=== PATIENT | female | born 1970 | race Caucasian/White ===

== ENCOUNTER → 2016-07-25 | Outpatient (CLI) | payer BC ==
[2016-07-25 09:45] LABS: ALBUMIN 3.7 GM/DL (3.2-5.2); ALBUMIN/GLOBULIN RATIO 1.16 (1.00-1.93); ALKALINE PHOSPHATASE 49 U/L (45-117); ALT/SGPT 23 U/L (12-78); ANION GAP 10 MEQ/L (8-16); AST/SGOT 10 U/L (15-37); BILIRUBIN,TOTAL 0.5 MG/DL (0.2-1.0); BLOOD UREA NITROGEN 20 MG/DL (7-18); CARBON DIOXIDE LEVEL 25 MEQ/L (21-32); CHLORIDE LEVEL 104 MEQ/L (98-107); CHOLESTEROL LEVEL 168 MG/DL (<200); CREATININE FOR GFR 0.58 MG/DL (0.55-1.02); FERRITIN 6 NG/ML (8-252); GLOMERULAR FILTRATION RATE > 60.0 (>58); GLUCOSE, FASTING 210 MG/DL (70-105); PERCENT SATURATION 15.5 % (13.2-37.4); POTASSIUM SERUM 4.3 MEQ/L (3.5-5.1); SODIUM LEVEL 139 MEQ/L (136-145); TOTAL IRON BINDING CAPACITY 343 UG/DL (250-450); TOTAL PROTEIN 6.9 GM/DL (6.4-8.2); TRIGLYCERIDES LEVEL 193 MG/DL (<150)
[2016-07-25 09:51] LABS: BASO % 0.6 % (0.0-1.0); EOS # 0.1 K/mm3 (0.0-0.50); LARGE UNSTAINED CELL # 0.1 K/mm3 (0.0-0.4); LARGE UNSTAINED CELL % 1.8 % (0.0-4.0); LYMPH # 1.3 K/mm3 (1.5-4.5); LYMPH % 23.5 % (24.0-44.0); MEAN CORPUSCULAR HEMOGLOBIN 26.6 pg (27.0-33.0); MEAN CORPUSCULAR HGB CONC 32.5 g/dl (32.0-36.5); MEAN CORPUSCULAR VOLUME 81.9 fl (80.0-96.0); MONO # 0.3 K/mm3 (0.0-0.8); MONO % 4.6 % (0.0-5.0); NEUTROPHILS # 3.8 K/mm3 (1.8-7.7); NEUTROPHILS % 67.5 % (36.0-66.0); PLATELET COUNT, AUTOMATED 186 k/mm3 (150-450); RED CELL DISTRIBUTION WIDTH 16.2 % (11.5-14.5); WHITE BLOOD COUNT 5.6 K/mm3 (4.0-10.0)
== END ==
LOC: M LAB 08:42
PROVIDERS: ATTEND Family Medicine
DX: E11.65 Type 2 diabetes mellitus with hyperglycemia (principal)

== ENCOUNTER → 2016-10-22 | Outpatient (CLI) | payer BC ==
[2016-10-22 10:21] LABS: ALBUMIN 3.7 GM/DL (3.2-5.2); ALBUMIN/GLOBULIN RATIO 1.16 (1.00-1.93); ALKALINE PHOSPHATASE 41 U/L (45-117); ALT/SGPT 18 U/L (12-78); ANION GAP 9 MEQ/L (8-16); AST/SGOT 6 U/L (15-37); BILIRUBIN,TOTAL 0.7 MG/DL (0.2-1.0); BLOOD UREA NITROGEN 19 MG/DL (7-18); CALCIUM LEVEL 8.3 MG/DL (8.5-10.1); CARBON DIOXIDE LEVEL 24 MEQ/L (21-32); CHLORIDE LEVEL 106 MEQ/L (98-107); CHOLESTEROL LEVEL 136 MG/DL (<200); CREATININE FOR GFR 0.61 MG/DL (0.55-1.02); FERRITIN 8 NG/ML (8-252); GLOMERULAR FILTRATION RATE > 60.0 (>58); GLUCOSE, FASTING 145 MG/DL (70-105); POTASSIUM SERUM 4.1 MEQ/L (3.5-5.1); SODIUM LEVEL 139 MEQ/L (136-145); TOTAL PROTEIN 6.9 GM/DL (6.4-8.2); TRIGLYCERIDES LEVEL 117 MG/DL (<150)
== END ==
LOC: M LAB 09:02
PROVIDERS: ATTEND Family Medicine
DX: E11.65 Type 2 diabetes mellitus with hyperglycemia (principal); D50.9 Iron deficiency anemia, unspecified

== ENCOUNTER → 2017-01-23 | Outpatient (CLI) | payer BC ==
[2017-01-23 10:52] LABS: BASO % 0.7 % (0.0-1.0); EOS # 0.2 K/mm3 (0.0-0.50); EOS % 2.7 % (0.0-3.0); LARGE UNSTAINED CELL # 0.1 K/mm3 (0.0-0.4); LARGE UNSTAINED CELL % 1.9 % (0.0-4.0); LYMPH # 1.9 K/mm3 (1.5-4.5); LYMPH % 23.8 % (24.0-44.0); MEAN CORPUSCULAR HEMOGLOBIN 30.7 pg (27.0-33.0); MEAN CORPUSCULAR HGB CONC 34.4 g/dl (32.0-36.5); MONO # 0.3 K/mm3 (0.0-0.8); MONO % 4.4 % (0.0-5.0); NEUTROPHILS # 4.8 K/mm3 (1.8-7.7); NEUTROPHILS % 66.5 % (36.0-66.0); PLATELET COUNT, AUTOMATED 214 k/mm3 (150-450); RED CELL DISTRIBUTION WIDTH 12.9 % (11.5-14.5); WHITE BLOOD COUNT 7.3 K/mm3 (4.0-10.0)
[2017-01-23 11:23] LABS: ANION GAP 7 MEQ/L (8-16); BLOOD UREA NITROGEN 17 MG/DL (7-18); CALCIUM LEVEL 9.1 MG/DL (8.5-10.1); CARBON DIOXIDE LEVEL 26 MEQ/L (21-32); CHLORIDE LEVEL 105 MEQ/L (98-107); CREATININE FOR GFR 0.65 MG/DL (0.55-1.02); FREE T4 1.01 NG/DL (0.76-1.46); GLOMERULAR FILTRATION RATE > 60.0 (>58); GLUCOSE, FASTING 148 MG/DL (70-105); POTASSIUM SERUM 4.3 MEQ/L (3.5-5.1); SODIUM LEVEL 138 MEQ/L (136-145)
== END ==
LOC: M LAB 09:42
PROVIDERS: ATTEND Physician Assistant
DX: E11.65 Type 2 diabetes mellitus with hyperglycemia (principal)

== ENCOUNTER → 2017-04-30 | Outpatient (CLI) | payer BC ==
[2017-04-30 11:01] LABS: BASO # 0.1 10^3/uL (0.0-0.2); BASO % 0.6 % (0.0-1.0); EOS # 0.1 10^3/uL (0.0-0.50); EOS % 1.3 % (0.0-3.0); IMMATURE GRANULOCYTE % 0.3 % (0-0); LYMPH # 1.5 10^3/uL (1.5-4.5); LYMPH % 18.8 % (24.0-44.0); MEAN CORPUSCULAR HEMOGLOBIN 30.6 pg (27.0-33.0); MEAN CORPUSCULAR HGB CONC 34.2 g/dl (32.0-36.5); MEAN CORPUSCULAR VOLUME 89.6 fl (80.0-96.0); MONO # 0.4 10^3/uL (0.0-0.8); MONO % 4.9 % (0.0-5.0); NEUTROPHILS # 5.9 10^3/uL (1.8-7.7); NEUTROPHILS % 74.1 % (36.0-66.0); PLATELET COUNT, AUTOMATED 214 10^3/uL (150-450); RED CELL DISTRIBUTION WIDTH 12.7 % (11.5-14.5)
[2017-04-30 11:16] LABS: ALBUMIN 3.7 GM/DL (3.2-5.2); ALBUMIN/GLOBULIN RATIO 1.12 (1.00-1.93); ALKALINE PHOSPHATASE 44 U/L (45-117); ALT/SGPT 19 U/L (12-78); ANION GAP 9 MEQ/L (8-16); AST/SGOT 7 U/L (7-37); BILIRUBIN,TOTAL 1.1 MG/DL (0.2-1.0); BLOOD UREA NITROGEN 19 MG/DL (7-18); CALCIUM LEVEL 8.6 MG/DL (8.5-10.1); CARBON DIOXIDE LEVEL 25 MEQ/L (21-32); CHLORIDE LEVEL 103 MEQ/L (98-107); CHOLESTEROL LEVEL 161 MG/DL (<200); CREATININE FOR GFR 0.47 MG/DL (0.55-1.02); GLOMERULAR FILTRATION RATE > 60.0 (>58); GLUCOSE, FASTING 101 MG/DL (70-105); POTASSIUM SERUM 3.9 MEQ/L (3.5-5.1); SODIUM LEVEL 137 MEQ/L (136-145); TRIGLYCERIDES LEVEL 104 MG/DL (<150)
== END ==
LOC: M LAB 10:18
PROVIDERS: ATTEND Family Medicine
DX: E11.9 Type 2 diabetes mellitus without complications (principal); D50.9 Iron deficiency anemia, unspecified

== ENCOUNTER → 2017-07-30 | Outpatient (CLI) | payer BC ==
[2017-07-30 10:19] LABS: ANION GAP 8 MEQ/L (8-16); BLOOD UREA NITROGEN 22 MG/DL (7-18); CALCIUM LEVEL 8.7 MG/DL (8.5-10.1); CARBON DIOXIDE LEVEL 25 MEQ/L (21-32); CHLORIDE LEVEL 106 MEQ/L (98-107); CREATININE FOR GFR 0.62 MG/DL (0.55-1.30); GLOMERULAR FILTRATION RATE > 60.0 (>58); GLUCOSE, FASTING 123 MG/DL (70-100); POTASSIUM SERUM 4.1 MEQ/L (3.5-5.1); SODIUM LEVEL 139 MEQ/L (136-145)
[2017-07-30 10:28] LABS: ESTIMATED AVERAGE GLUCOSE 143 MG/DL (60-110); HEMOGLOBIN A1c 6.6 %
== END ==
LOC: M LAB 09:27
DX: Z00.00 Encounter for general adult medical examination without abnormal findings (principal); E11.9 Type 2 diabetes mellitus without complications
CPT/HCPCS: 83036

== ENCOUNTER → 2017-10-28 | Outpatient (CLI) | payer BC ==
[2017-10-28 10:34] LABS: BASO # 0.1 10^3/uL (0.0-0.2); BASO % 0.7 % (0.0-1.0); EOS # 0.1 10^3/uL (0.0-0.50); EOS % 1.6 % (0.0-3.0); HEMATOCRIT 43.4 % (36.0-47.0); HEMOGLOBIN 14.8 g/dl (12.0-15.5); IMMATURE GRANULOCYTE % 0.1 % (0-3.0); LYMPH # 1.6 10^3/uL (1.5-4.5); LYMPH % 23.3 % (24.0-44.0); MEAN CORPUSCULAR HEMOGLOBIN 31.1 pg (27.0-33.0); MEAN CORPUSCULAR HGB CONC 34.1 g/dl (32.0-36.5); MEAN CORPUSCULAR VOLUME 91.2 fl (80.0-96.0); MONO # 0.4 10^3/uL (0.0-0.8); MONO % 5.6 % (0.0-5.0); NEUTROPHILS # 4.8 10^3/uL (1.8-7.7); NEUTROPHILS % 68.7 % (36.0-66.0); PLATELET COUNT, AUTOMATED 215 10^3/uL (150-450); RED BLOOD COUNT 4.76 10^6/uL (4.00-5.40); RED CELL DISTRIBUTION WIDTH 12.5 % (11.5-14.5)
[2017-10-28 10:53] LABS: ESTIMATED AVERAGE GLUCOSE 140 MG/DL (60-110); HEMOGLOBIN A1c 6.5 %
[2017-10-28 11:07] LABS: ALBUMIN/GLOBULIN RATIO 1.18 (1.00-1.93); ALKALINE PHOSPHATASE 41 U/L (45-117); ALT/SGPT 20 U/L (12-78); ANION GAP 7 MEQ/L (8-16); AST/SGOT 10 U/L (7-37); BILIRUBIN,TOTAL 0.8 MG/DL (0.2-1.0); BLOOD UREA NITROGEN 23 MG/DL (7-18); CARBON DIOXIDE LEVEL 24 MEQ/L (21-32); CHLORIDE LEVEL 107 MEQ/L (98-107); CREATININE FOR GFR 0.57 MG/DL (0.55-1.30); GLOMERULAR FILTRATION RATE > 60.0 (>58); GLUCOSE, FASTING 130 MG/DL (70-100); POTASSIUM SERUM 4.3 MEQ/L (3.5-5.1); SODIUM LEVEL 138 MEQ/L (136-145); TOTAL PROTEIN 7.4 GM/DL (6.4-8.2)
[2017-10-28 11:16] LABS: MALB URINE SIEMENS 17.4 MG/L; MAU/CREAT RATIO 16.1 MCG/MG (0.0-30.0)
== END ==
LOC: M LAB 09:40
DX: E11.9 Type 2 diabetes mellitus without complications (principal)
CPT/HCPCS: 80053

== ENCOUNTER → 2018-05-05 | Outpatient (CLI) | payer BC | LOC: M RAD 08:06 | DX: Z12.31 Encounter for screening mammogram for malignant neoplasm of breast (principal) ==

== ENCOUNTER → 2018-05-05 | Outpatient (CLI) | payer BC ==
[2018-05-05 09:51] LABS: ALBUMIN/GLOBULIN RATIO 1.33 (1.00-1.93); ALKALINE PHOSPHATASE 49 U/L (45-117); ALT/SGPT 22 U/L (12-78); ANION GAP 8 MEQ/L (8-16); AST/SGOT 9 U/L (7-37); BILIRUBIN,TOTAL 1.1 MG/DL (0.2-1.0); BLOOD UREA NITROGEN 20 MG/DL (7-18); CARBON DIOXIDE LEVEL 24 MEQ/L (21-32); CHLORIDE LEVEL 105 MEQ/L (98-107); CHOLESTEROL LEVEL 172 MG/DL (<200); CHOLESTEROL RISK RATIO 4.095 (<5); CREATININE FOR GFR 0.63 MG/DL (0.55-1.30); GLOMERULAR FILTRATION RATE > 60.0 (>58); GLUCOSE, FASTING 172 MG/DL (70-100); HDL CHOLESTEROL 42 MG/DL (>40); LDL CHOLESTEROL 102 MG/DL (<100); NON-HDL-C 130 MG/DL; POTASSIUM SERUM 4.2 MEQ/L (3.5-5.1); SODIUM LEVEL 137 MEQ/L (136-145); TRIGLYCERIDES LEVEL 138 MG/DL (<150)
[2018-05-05 10:17] LABS: CREATININE, URINE 70.4 MG/DL; MALB URINE SIEMENS 11.9 MG/L; MAU/CREAT RATIO 16.9 MCG/MG (0.0-30.0)
[2018-05-05 10:56] LABS: ESTIMATED AVERAGE GLUCOSE 171 MG/DL (60-110); HEMOGLOBIN A1c 7.6 %
== END ==
LOC: M LAB 08:08
DX: E11.9 Type 2 diabetes mellitus without complications (principal); Z68.36 Body mass index [BMI] 36.0-36.9, adult
CPT/HCPCS: 80053

== ENCOUNTER → 2018-06-15 | Outpatient (REF) | payer BC ==
[2018-06-18 14:55] LABS: HPV HYBRID CAPTURE II Positive (Negative)
== END ==
LOC: M LAB REF 19:14
PROVIDERS: ATTEND Family Medicine
DX: Z12.4 Encounter for screening for malignant neoplasm of cervix (principal)
CPT/HCPCS: 87624; G0123

== ENCOUNTER → 2018-08-10 | Outpatient (CLI) | payer BC ==
[2018-08-10 11:17] LABS: BLOOD UREA NITROGEN 19 MG/DL (7-18); CALCIUM LEVEL 8.1 MG/DL (8.5-10.1); CARBON DIOXIDE LEVEL 24 MEQ/L (21-32); CHLORIDE LEVEL 107 MEQ/L (98-107); CREATININE FOR GFR 0.66 MG/DL (0.55-1.30); GLOMERULAR FILTRATION RATE > 60.0 (>58); GLUCOSE, FASTING 192 MG/DL (70-100); POTASSIUM SERUM 4.4 MEQ/L (3.5-5.1); SODIUM LEVEL 139 MEQ/L (136-145)
[2018-08-10 12:15] LABS: HEMOGLOBIN A1c 7.3 %
== END ==
LOC: M LAB 09:42
PROVIDERS: ATTEND Physician Assistant
DX: Z00.00 Encounter for general adult medical examination without abnormal findings (principal)

== ENCOUNTER → 2018-09-23 | Outpatient (CLI) | payer BC ==
[2018-09-23 13:48] LABS: HEMATOCRIT 46.2 % (36.0-47.0); HEMOGLOBIN 15.1 g/dl (12.0-15.5); MEAN CORPUSCULAR HEMOGLOBIN 30.2 pg (27.0-33.0); MEAN CORPUSCULAR HGB CONC 32.7 g/dl (32.0-36.5); MEAN CORPUSCULAR VOLUME 92.4 fl (80.0-96.0); PLATELET COUNT, AUTOMATED 243 10^3/uL (150-450); WHITE BLOOD COUNT 8.2 10^3/uL (4.0-10.0)
[2018-09-23 15:02] LABS: FREE T4 0.96 NG/DL (0.76-1.46); LUTEINIZING HORMONE 12.5 mIU/mL; THYROID STIMULATING HORMONE 2.26 uIU/ML (0.358-3.740)
== END ==
LOC: M SMT 11:19
PROVIDERS: ATTEND Advanced Practice Midwife
DX: N92.0 Excessive and frequent menstruation with regular cycle (principal)

== ENCOUNTER → 2018-09-25 | Outpatient (CLI) | payer BC ==
--- NOTE | 2018-09-25 18:52 | REP ---
PELVIC ULTRASOUND: Real-time sonographic evaluation of the pelvis was performed utilizing transabdominal and endovaginal technique. The bladder measures 6.7 x 5.8 x 9.2 cm. The uterus measures 7.7 x 4.0 x 4.9 cm. Endometrial thickness is normal at 4 mm. There is no endometrial fluid collection. Cystic structure in the anterior uterus in the superficial myometrium measures approximately 5 mm. There is also a tiny calcification anteriorly adjacent to the endometrial echo complex. Junctional zone is ill-defined which could indicate adenomyosis. Ovaries are normal in size and echotexture, right ovary measuring 1.7 x 0.8 x 2.1 cm and left ovary 2.1 x 1.3 x 2.3 cm. There is no adnexal mass or free fluid. There is no evidence of torsion. IMPRESSION: Normal endometrial thickness 4 mm. A 5 mm cystic structure anterior myometrium. Tiny calcification adjacent to anterior endometrium. Junctional zone is ill-defined which could indicate adenomyosis. Electronically Signed by Trent Wyman MD 09/28/2018 01:47 P
== END ==
LOC: M RAD 14:38
PROVIDERS: ATTEND Advanced Practice Midwife
DX: N85.8 Other specified noninflammatory disorders of uterus (principal)

== ENCOUNTER → 2018-10-09 | Outpatient (REF) | payer BC | LOC: M LAB REF 17:59 | PROVIDERS: ATTEND Advanced Practice Midwife | DX: N92.0 Excessive and frequent menstruation with regular cycle (principal) ==

== ENCOUNTER → 2018-12-10 | Outpatient (CLI) | payer BC ==
[2018-12-10 10:26] LABS: ALBUMIN 3.9 GM/DL (3.2-5.2); ALT/SGPT 28 U/L (12-78); BILIRUBIN,TOTAL 0.9 MG/DL (0.2-1.0); BLOOD UREA NITROGEN 26 MG/DL (7-18); CALCIUM LEVEL 9.1 MG/DL (8.5-10.1); CARBON DIOXIDE LEVEL 25 MEQ/L (21-32); CHLORIDE LEVEL 108 MEQ/L (98-107); CREATININE FOR GFR 0.82 MG/DL (0.55-1.30); GLOMERULAR FILTRATION RATE > 60.0 (>58); GLUCOSE, FASTING 169 MG/DL (70-100); POTASSIUM SERUM 4.2 MEQ/L (3.5-5.1); SODIUM LEVEL 139 MEQ/L (136-145); TOTAL PROTEIN 7.4 GM/DL (6.4-8.2)
[2018-12-10 10:51] LABS: HEMOGLOBIN A1c 7.7 %
[2018-12-10 11:09] LABS: MALB URINE SIEMENS 11.7 MG/L
== END ==
LOC: M SMT 08:18
PROVIDERS: ATTEND Family Medicine
DX: E11.65 Type 2 diabetes mellitus with hyperglycemia (principal)

== ENCOUNTER → 2019-05-28 | Outpatient (CLI) | payer BC ==
[2019-05-28 14:15] LABS: BASO # 0.1 10^3/uL (0.0-0.2); BASO % 0.8 % (0.0-1.0); EOS # 0.1 10^3/uL (0.0-0.5); EOS % 2.2 % (0.0-3.0); HEMATOCRIT 44.5 % (36.0-47.0); HEMOGLOBIN 14.7 g/dl (12.0-15.5); LYMPH # 1.6 10^3/uL (1.5-5.0); LYMPH % 25.9 % (24.0-44.0); MEAN CORPUSCULAR HEMOGLOBIN 30.8 pg (27.0-33.0); MEAN CORPUSCULAR VOLUME 93.1 fl (80.0-96.0); MONO # 0.4 10^3/uL (0.0-0.8); MONO % 6.2 % (0.0-5.0); NEUTROPHILS # 4.1 10^3/uL (1.5-8.5); NEUTROPHILS % 64.7 % (36.0-66.0); PLATELET COUNT, AUTOMATED 203 10^3/uL (150-450); RED BLOOD COUNT 4.78 10^6/uL (4.00-5.40); WHITE BLOOD COUNT 6.3 10^3/uL (4.0-10.0)
[2019-05-28 14:28] LABS: ALBUMIN 3.8 GM/DL (3.2-5.2); ALT/SGPT 23 U/L (12-78); BILIRUBIN,TOTAL 1.1 MG/DL (0.2-1.0); BLOOD UREA NITROGEN 21 MG/DL (7-18); CALCIUM LEVEL 8.9 MG/DL (8.5-10.1); CARBON DIOXIDE LEVEL 28 MEQ/L (21-32); CHLORIDE LEVEL 105 MEQ/L (98-107); CHOLESTEROL LEVEL 190 MG/DL (<200); CREATININE FOR GFR 0.58 MG/DL (0.55-1.30); FREE T4 0.84 NG/DL (0.76-1.46); GLOMERULAR FILTRATION RATE > 60.0 (>58); GLUCOSE, FASTING 188 MG/DL (70-100); HDL CHOLESTEROL 50 MG/DL (>40); LDL CHOLESTEROL 107 MG/DL (<100); NON-HDL-C 140 MG/DL; POTASSIUM SERUM 4.3 MEQ/L (3.5-5.1); SODIUM LEVEL 138 MEQ/L (136-145); TOTAL PROTEIN 7.2 GM/DL (6.4-8.2); TRIGLYCERIDES LEVEL 163 MG/DL (<150)
== END ==
LOC: M PLALAB 09:25
PROVIDERS: ATTEND Physician Assistant
DX: E11.65 Type 2 diabetes mellitus with hyperglycemia (principal); I10 Essential (primary) hypertension; D64.9 Anemia, unspecified

== ENCOUNTER → 2019-12-13 | Outpatient (CLI) | payer BC ==
[2019-12-13 14:37] LABS: EOS # 0.1 10^3/uL (0.0-0.5); EOS % 1.2 % (0.0-3.0); HEMATOCRIT 45.1 % (36.0-47.0); HEMOGLOBIN 14.9 g/dl (12.0-15.5); LYMPH # 0.7 10^3/uL (1.5-5.0); LYMPH % 17.1 % (24.0-44.0); MEAN CORPUSCULAR HEMOGLOBIN 30.9 pg (27.0-33.0); MEAN CORPUSCULAR VOLUME 93.6 fl (80.0-96.0); MONO # 0.4 10^3/uL (0.0-0.8); MONO % 9.4 % (0.0-5.0); NEUTROPHILS # 2.9 10^3/uL (1.5-8.5); NEUTROPHILS % 71.1 % (36.0-66.0); PLATELET COUNT, AUTOMATED 129 10^3/uL (150-450); RED BLOOD COUNT 4.82 10^6/uL (4.00-5.40)
[2019-12-13 14:55] LABS: ALBUMIN 3.8 GM/DL (3.2-5.2); ALT/SGPT 37 U/L (12-78); BILIRUBIN,TOTAL 1.2 MG/DL (0.2-1.0); BLOOD UREA NITROGEN 17 MG/DL (7-18); CALCIUM LEVEL 8.9 MG/DL (8.5-10.1); CARBON DIOXIDE LEVEL 25 MEQ/L (21-32); CHLORIDE LEVEL 102 MEQ/L (98-107); CHOLESTEROL LEVEL 150 MG/DL (<200); CHOLESTEROL RISK RATIO 3.333 (<5); CREATININE FOR GFR 0.67 MG/DL (0.55-1.30); GLOMERULAR FILTRATION RATE > 60.0 (>58); GLUCOSE, FASTING 250 MG/DL (70-100); HDL CHOLESTEROL 45 MG/DL (>40); LDL CHOLESTEROL 81 MG/DL (<100); NON-HDL-C 105 MG/DL; POTASSIUM SERUM 4.3 MEQ/L (3.5-5.1); SODIUM LEVEL 135 MEQ/L (136-145); TRIGLYCERIDES LEVEL 119 MG/DL (<150)
[2019-12-13 15:00] LABS: MONO SCRN NEGATIVE (NEGATIVE)
[2019-12-13 15:23] LABS: MALB URINE SIEMENS 37.7 MG/L; MAU/CREAT RATIO 37.3 MCG/MG (0.0-30.0)
[2019-12-13 15:49] LABS: HEMOGLOBIN A1c 9.4 %
[2019-12-14 18:13] LABS: Lyme Disease IgG/IgM Antibodie <0.91 ISR (0.00-0.90); Lyme Disease IgM Ab Quantitati <0.80 index (0.00-0.79)
== END ==
LOC: M PLALAB 09:45
PROVIDERS: ATTEND Family Medicine
DX: E78.00 Pure hypercholesterolemia, unspecified (principal); E11.65 Type 2 diabetes mellitus with hyperglycemia; B02.9 Zoster without complications

== ENCOUNTER → 2022-03-18 | Outpatient (REF) | payer BC | LOC: M LAB REF 17:04 | PROVIDERS: ATTEND Family Medicine | DX: N23 Unspecified renal colic (principal) ==

== ENCOUNTER → 2022-03-25 | Outpatient (CLI) | payer BC | LOC: M WHC 09:59 | PROVIDERS: ATTEND Family Medicine | DX: Z12.31 Encounter for screening mammogram for malignant neoplasm of breast (principal) ==

== ENCOUNTER → 2022-05-28 | Outpatient (CLI) | payer BC ==
[~2022-05-28] MED LIST: ECOT81TA5 PO; JARD1TAB3; LISI10TA22; METF-838 PO; ROSU5TAB5; TRUL0.5I; VITMTA PO
== END ==
LOC: M LABSMTC 09:42
PROVIDERS: ATTEND Anesthesiology
DX: Z01.812 Encounter for preprocedural laboratory examination (principal)

== ENCOUNTER 2022-05-30 08:02 | Day surgery (SDC) | payer BC ==
[~2022-05-30] VITALS: Ht 165.1 cm; Wt 79.8 kg
[~2022-05-30 08:02] MED LIST changes: +NS 1,000 ML IV ONE
[2022-05-30] MEDS ORDERED: LIDOCAINE 2% 100MG/5ML SDV (FOR ANES.) As Ordered ONE (09:06)
[2022-05-30] MEDS ORDERED: propofoL 200 MG/20 ML VIAL As Ordered ONE ×3 (09:06→09:17)
[2022-05-30 09:50] VITALS: BP 116/71
== END 2022-05-30 09:56 | disposition home or self-care (01) ==
LOC: M OPP 08:02
PROVIDERS: ATTEND Surgery
DX: Z12.11 Encounter for screening for malignant neoplasm of colon (principal); F17.200 Nicotine dependence, unspecified, uncomplicated; E11.9 Type 2 diabetes mellitus without complications; I10 Essential (primary) hypertension; D64.9 Anemia, unspecified; Z79.02 Long term (current) use of antithrombotics/antiplatelets; Z79.82 Long term (current) use of aspirin; Z79.84 Long term (current) use of oral hypoglycemic drugs; Z79.899 Other long term (current) drug therapy

== ENCOUNTER → 2024-02-04 | Outpatient (REF) | payer OTHER ==
[~2024-02-04] MED LIST changes: -NS 1,000 ML IV ONE; +ROSU5TAB40; -ROSU5TAB5
== END ==
LOC: M SFHCDERM 16:56
PROVIDERS: ATTEND Physician Assistant
DX: R21 Rash and other nonspecific skin eruption (principal); Z53.9 Procedure and treatment not carried out, unspecified reason

== ENCOUNTER → 2024-02-05 | Outpatient (CLI) | payer OTHER ==
[2024-02-05 10:29] LABS: BASO # 0.1 10^3/uL (0.0-0.2); EOS # 0.2 10^3/uL (0.0-0.5); EOS % 2.5 % (0.0-3.0); HEMATOCRIT 46.4 % (36.0-47.0); HEMOGLOBIN 15.7 g/dl (12.0-15.5); LYMPH # 1.9 10^3/uL (1.5-5.0); LYMPH % 28.7 % (24.0-44.0); MEAN CORPUSCULAR HGB CONC 33.8 g/dl (32.0-36.5); MEAN CORPUSCULAR VOLUME 91.7 fl (80.0-96.0); MONO # 0.4 10^3/uL (0.0-0.8); NEUTROPHILS # 4.1 10^3/uL (1.5-8.5); NEUTROPHILS % 61.7 % (36.0-66.0); PLATELET COUNT, AUTOMATED 191 10^3/uL (150-450); RED BLOOD COUNT 5.06 10^6/uL (4.00-5.40); WHITE BLOOD COUNT 6.7 10^3/uL (4.0-10.0)
[2024-02-05 10:41] LABS: ERYTHROCYTE SEDIMENTATION RATE 14 mm/hr (0-30)
[2024-02-05 10:51] LABS: C REACTIVE PROTEIN QUANTITATIV < 0.40 MG/DL (<1.0)
[2024-02-05 10:53] LABS: ALBUMIN 3.9 G/DL (3.2-5.2); ALKALINE PHOSPHATASE 61 U/L (46-116); ALT/SGPT 22 U/L (7.0-40); AST/SGOT < 8 U/L (<34); BLOOD UREA NITROGEN 19 MG/DL (9-23); CALCIUM LEVEL 9.6 MG/DL (8.5-10.1); CARBON DIOXIDE LEVEL 30 MMOL/L (20-31); CHLORIDE LEVEL 109 MMOL/L (98-107); CPK CREATINE PHOSPHOKINASE 23 U/L (34-145); CREATININE FOR GFR 0.53 MG/DL (0.55-1.30); GLOMERULAR FILTRATION RATE > 60.0 (>51); GLUCOSE, FASTING 211 MG/DL (60-100); POTASSIUM SERUM 4.5 MMOL/L (3.5-5.1); SODIUM LEVEL 142 MMOL/L (136-145)
[2024-02-05 10:54] LABS: CK-MB VALUE MASS < 1.0 NG/ML (<3.6); MB/CK RELATIVE INDEX 4.34 (< OR =4)
[2024-02-05 10:58] LABS: THYROID STIMULATING HORMONE 1.872 uIU/ML (0.55-4.78)
[2024-02-05 10:59] LABS: FOLLICLE STIMULATING HORMONE 32.7 mIU/ML; LUTEINIZING HORMONE 20.4 mIU/ML
[2024-02-05 11:00] LABS: FREE T4 1.25 NG/DL (0.89-1.76)
[2024-02-05 11:01] LABS: TESTOSTERONE 20 NG/DL (14-76)
[2024-02-06 11:27] LABS: DEHYDROEPIANDROSTERONE SULFATE 75 mcg/dL (5-167)
[2024-02-07 01:47] LABS: ANTI SMITH(Sm) AB <1.0 NEG AI (<1.0 NEG); SSA SJOGRENS A <1.0 NEG AI (<1.0 NEG); SSB SJOGRENS B <1.0 NEG AI (<1.0 NEG)
[2024-02-09 14:22] LABS: ANA SCREEN, IFA NEGATIVE (NEGATIVE)
[2024-02-09 16:27] LABS: ANTI-MITOCHONDRIAL ANTIBODY NEGATIVE (NEGATIVE)
[2024-02-09 16:57] LABS: ALDOLASE 3.7 U/L (< OR = 8.1)
== END ==
LOC: M LAB 09:11
PROVIDERS: ATTEND Physician Assistant
DX: R21 Rash and other nonspecific skin eruption (principal)

== ENCOUNTER → 2024-03-18 | Outpatient (CLI) | payer OTHER ==
[2024-03-18 16:17] LABS: HCG, SERUM QUALITATIVE NEGATIVE (NEGATIVE)
== END ==
LOC: M PLALAB 11:50
PROVIDERS: ATTEND Physician Assistant
DX: R21 Rash and other nonspecific skin eruption (principal)

== ENCOUNTER → 2024-03-24 | Outpatient (CLI) | payer OTHER ==
[~2024-03-24] MED LIST changes: +ISOVUE-370 76% 100ML VIAL ONE
== END ==
LOC: M PLAIMG 08:30
PROVIDERS: ATTEND Dermatology
DX: R21 Rash and other nonspecific skin eruption (principal); K80.20 Calculus of gallbladder without cholecystitis without obstruction
CPT/HCPCS: 70491; 71046; 74177; Q9967

== ENCOUNTER → 2024-04-06 | Outpatient (CLI) | payer OTHER ==
[~2024-04-06] MED LIST changes: -ISOVUE-370 76% 100ML VIAL ONE
[2024-04-06 19:22] LABS: BLOOD UREA NITROGEN 22 MG/DL (9-23); CARBON DIOXIDE LEVEL 28 MMOL/L (20-31); CHLORIDE LEVEL 104 MMOL/L (98-107); CREATININE FOR GFR 0.46 MG/DL (0.55-1.30); GLOMERULAR FILTRATION RATE > 60.0 (>51); GLUCOSE, FASTING 264 MG/DL (60-100); SODIUM LEVEL 137 MMOL/L (136-145)
== END ==
LOC: M PLALAB 14:12
PROVIDERS: ATTEND Physician Assistant
DX: L65.9 Nonscarring hair loss, unspecified (principal)

== ENCOUNTER → 2024-04-27 | Outpatient (CLI) | payer OTHER ==
[~2024-04-27] MED LIST changes: -ROSU5TAB40; +ROSU5TAB49
== END ==
LOC: M PLALAB 12:54
PROVIDERS: ATTEND Obstetrics & Gynecology
DX: D27.9 Benign neoplasm of unspecified ovary (principal)

== ENCOUNTER → 2024-04-27 | Outpatient (CLI) | payer OTHER ==
[2024-04-27 16:28] LABS: LDH LACTATE DEHYDROGENASE 134 U/L (120-246)
[2024-04-27 16:31] LABS: CARCINOEMBRYONIC ANTIGEN < 2.0 NG/ML (<2.5)
[2024-04-27 16:46] LABS: CA19-9 TUMOR MARKER,CARBOHYDRA < 1.2 U/ML (<35.0)
[2024-05-01 21:22] LABS: HE4 34 pmol/L
[2024-05-05 15:09] LABS: INHIBIN A ULTRASENSITIVE 1.9 pg/mL (.); INHIBIN B 8.1 pg/mL (.)
== END ==
LOC: M PLAIMG 12:57
PROVIDERS: ATTEND Physician Assistant
DX: R21 Rash and other nonspecific skin eruption (principal)

== ENCOUNTER → 2024-06-01 | Outpatient (CLI) | payer OTHER ==
[2024-06-01 17:22] LABS: BLOOD UREA NITROGEN 28 MG/DL (9-23); CALCIUM LEVEL 9.9 MG/DL (8.5-10.1); CARBON DIOXIDE LEVEL 26 MMOL/L (20-31); CHLORIDE LEVEL 104 MMOL/L (98-107); CREATININE FOR GFR 0.54 MG/DL (0.55-1.30); GLOMERULAR FILTRATION RATE > 60.0 (>51); GLUCOSE, FASTING 185 MG/DL (60-100); POTASSIUM SERUM 4.1 MMOL/L (3.5-5.1); SODIUM LEVEL 139 MMOL/L (136-145)
== END ==
LOC: M PLALAB 14:34
PROVIDERS: ATTEND Dermatology
DX: R21 Rash and other nonspecific skin eruption (principal)

== ENCOUNTER → 2024-06-04 | Outpatient (CLI) | payer OTHER ==
[~2024-06-04] MED LIST changes: +ISOVUE-370 76% 100ML VIAL ONE
== END ==
LOC: M PLAIMG 08:56
PROVIDERS: ATTEND Dermatology
DX: R21 Rash and other nonspecific skin eruption (principal); J98.11 Atelectasis
CPT/HCPCS: 70460; 71260; Q9967

== ENCOUNTER → 2024-07-12 | Outpatient (CLI) | payer OTHER ==
[~2024-07-12] MED LIST changes: -ISOVUE-370 76% 100ML VIAL ONE
== END ==
LOC: M PLALAB 08:13
PROVIDERS: ATTEND Physician Assistant
DX: L21.9 Seborrheic dermatitis, unspecified (principal)

== ENCOUNTER → 2024-07-12 | Outpatient (CLI) | payer OTHER ==
[2024-07-12 11:27] LABS: HEMATOCRIT 45.5 % (36.0-47.0); HEMOGLOBIN 15.1 g/dl (12.0-15.5); MEAN CORPUSCULAR HGB CONC 33.2 g/dl (32.0-36.5); MEAN CORPUSCULAR VOLUME 93.4 fl (80.0-96.0); PLATELET COUNT, AUTOMATED 199 10^3/uL (150-450); RED BLOOD COUNT 4.87 10^6/uL (4.00-5.40); WHITE BLOOD COUNT 7.3 10^3/uL (4.0-10.0)
[2024-07-12 12:10] LABS: CREATININE, URINE 49.1 MG/DL; MAU/CREAT RATIO 20.3 MCG/MG (0.0-30.0)
[2024-07-12 12:26] LABS: ALBUMIN 4.2 G/DL (3.2-5.2); ALKALINE PHOSPHATASE 49 U/L (35-104); ALT/SGPT 22 U/L (7.0-40); AST/SGOT 12 U/L (<34); BILIRUBIN,TOTAL 1.2 MG/DL (0.3-1.2); BLOOD UREA NITROGEN 29 MG/DL (9-23); CALCIUM LEVEL 9.3 MG/DL (8.5-10.1); CARBON DIOXIDE LEVEL 27 MMOL/L (20-31); CHLORIDE LEVEL 105 MMOL/L (98-107); CHOLESTEROL LEVEL 128 MG/DL (<200); CREATININE FOR GFR 0.58 MG/DL (0.55-1.30); GLOMERULAR FILTRATION RATE > 60.0 (>51); GLUCOSE, FASTING 195 MG/DL (60-100); HDL CHOLESTEROL 55.6 MG/DL (>40); LDL CHOLESTEROL 58.4 MG/DL (<100); NON-HDL-C 72.4 MG/DL; POTASSIUM SERUM 4.3 MMOL/L (3.5-5.1); SODIUM LEVEL 140 MMOL/L (136-145); TOTAL PROTEIN 7.1 G/DL (5.7-8.2); TRIGLYCERIDES LEVEL 70 MG/DL (<150)
[2024-07-12 12:28] LABS: FREE T4 1.34 NG/DL (0.89-1.76); THYROID STIMULATING HORMONE 1.544 uIU/ML (0.55-4.78)
== END ==
LOC: M PLALAB 08:08
PROVIDERS: ATTEND Family Medicine
DX: E11.65 Type 2 diabetes mellitus with hyperglycemia (principal)

== ENCOUNTER → 2024-08-02 | Outpatient (CLI) | payer OTHER ==
[~2024-08-02] MED LIST changes: +CICL1SHA2 TOP; +CRAN500C5 PO; +FARX1TAB3 PO; +KETO2SHA8 TOP; +MAGN250T7 PO; +RAMI5CAP60 PO; -ROSU5TAB49; +ROSU5TAB49 PO; +SEMA1PEN2 SQ; +SPIR50TA4 PO; +THERTAB52 PO
== END ==
LOC: M WHC 07:31
PROVIDERS: ATTEND Family Medicine
DX: Z12.31 Encounter for screening mammogram for malignant neoplasm of breast (principal); R92.323 Mammographic fibroglandular density, bilateral breasts

== ENCOUNTER → 2024-08-09 | Outpatient (REF) | payer OTHER | LOC: M SFHCDERM 10:14 | PROVIDERS: ATTEND Physician Assistant | DX: Z53.9 Procedure and treatment not carried out, unspecified reason (principal) ==

== ENCOUNTER → 2024-08-10 | Outpatient (CLI) | payer OTHER | LOC: M CARPUL 13:13 | PROVIDERS: ATTEND Physician Assistant | DX: R94.31 Abnormal electrocardiogram [ECG] [EKG] (principal); R00.1 Bradycardia, unspecified ==

== ENCOUNTER 2024-08-23 11:02 | Day surgery (SDC) | payer OTHER ==
[~2024-08-23] VITALS: Ht 165.1 cm; Wt 73.0 kg
[2024-08-23 11:25] LABS: HEMATOCRIT 44.5 % (36.0-47.0); MEAN CORPUSCULAR HEMOGLOBIN 31.3 pg (27.0-33.0); MEAN CORPUSCULAR HGB CONC 33.7 g/dl (32.0-36.5); MEAN CORPUSCULAR VOLUME 92.7 fl (80.0-96.0); PLATELET COUNT, AUTOMATED 218 10^3/uL (150-450); WHITE BLOOD COUNT 8.1 10^3/uL (4.0-10.0)
[2024-08-23] MEDS: LR 1,000 ML IV SCH (13:57)
[2024-08-23] MEDS ORDERED: METHYLENE BLUE 0.5% (5MG/ML) 10 ML AMP (PROVAYBLUE) As Ordered ONE (15:23)
[2024-08-23] MEDS ORDERED: LIDOCAINE 2% 100MG/5ML SDV (FOR ANES.) As Ordered ONE (15:25)
[2024-08-23] MEDS ORDERED: fentaNYL 250 MCG/5 ML INJECTION As Ordered ONE (15:25)
[2024-08-23] MEDS ORDERED: ONDANSETRON 4MG 2ML VIAL As Ordered ONE (15:25)
[2024-08-23] MEDS ORDERED: ROCURONIUM BROMIDE 50MG/5ML VIAL As Ordered ONE (15:25)
[2024-08-23] MEDS ORDERED: propofoL 200 MG/20 ML VIAL As Ordered ONE (15:25)
[2024-08-23] MEDS ORDERED: MIDAZOLAM INJ 2MG/2ML VIAL As Ordered ONE (15:26)
[2024-08-23] MEDS ORDERED: dexmedeTOMIDine (4MCG/ML)200MCG/50ML BTL (PRECEDEX) As Ordered ONE (15:27)
[2024-08-23] MEDS: ceFAZolin SOD 2 GM IV ONCE IV ONE (16:05)
[2024-08-23] MEDS ORDERED: LACRILUBE (AKWA TEARS) OPHTH OINT 3.5GM As Ordered ONE (16:12)
[2024-08-23] MEDS ORDERED: ePHEDrine SULFATE 25 MG/5 ML(5MG/ML) SYRINGE As Ordered ONE (16:22)
[2024-08-23] MEDS ORDERED: PHENYLephrine 500MCG 5ML (100MCG/ML) SYRINGE As Ordered ONE (16:22)
[2024-08-23] MEDS ORDERED: ACETAMINOPHEN 1000MG/100ML IV BAG As Ordered ONE (16:25)
[2024-08-23] MEDS ORDERED: HYDROmorphone HCL 2MG/ML 1ML VIAL As Ordered ONE (16:25)
[2024-08-23] MEDS ORDERED: SUGAMMADEX SODIUM 500 MG/5 ML VIAL (BRIDION) As Ordered ONE (16:25)
[2024-08-23] MEDS ORDERED: KETOROLAC 30 MG/ML 1ML VIAL As Ordered ONE (16:25)
[2024-08-23] MEDS ORDERED: LR 1,000 ML IV SCH (18:05)
[2024-08-23] MEDS ORDERED: fentaNYL 100 MCG/2 ML INJECTION IV PRN (18:05)
[2024-08-23] MEDS ORDERED: PERC5TAB12 PO (18:34)
[2024-08-23] MEDS ORDERED: COLA100C5 PO (18:35)
[2024-08-23] MEDS ORDERED: INSULIN LISPRO (NovoLOG) PER UNIT SC PRN (18:35)
[2024-08-23] MEDS: oxyCODONE 5MG TAB PO PRN (19:00)
[2024-08-23] MEDS: ONDANSETRON 4MG 2ML VIAL IV PRN (19:07)
[2024-08-23] MEDS: HYDROMORPHONE HCL 0.5 MG/ 0.5 ML SYRINGE IV PRN (19:09)
[2024-08-23 21:05] VITALS: BP 104/57; TEMP 97.9; O2SAT 96
== END 2024-08-23 21:13 | disposition home or self-care (01) ==
LOC: M SDC 11:02
PROVIDERS: ATTEND Obstetrics & Gynecology
DX: D27.0 Benign neoplasm of right ovary (principal); E11.9 Type 2 diabetes mellitus without complications; I10 Essential (primary) hypertension; E78.5 Hyperlipidemia, unspecified; Z79.82 Long term (current) use of aspirin; K57.92 Diverticulitis of intestine, part unspecified, without perforation or abscess without bleeding; R21 Rash and other nonspecific skin eruption; G43.909 Migraine, unspecified, not intractable, without status migrainosus; Z79.84 Long term (current) use of oral hypoglycemic drugs; Z88.1 Allergy status to other antibiotic agents; Z87.891 Personal history of nicotine dependence
CPT/HCPCS: 36415; 58661; 81025; 85027; 86850; 86900; 86901; 88307; J0131; J0665; J0690; J1100; J1171; J1885; J2250; J2371; J2405; J3010; Q9968; S2900

== ENCOUNTER → 2024-10-08 | Outpatient (CLI) | payer OTHER ==
[~2024-10-08] MED LIST changes: +COLA100C5 PO; +KETO120S5 TOP; -KETO2SHA8 TOP; +PERC5TAB12 PO
[2024-10-08 13:23] LABS: BASO # 0.1 10^3/uL (0.0-0.2); BASO % 0.7 % (0.0-1.0); EOS # 0.1 10^3/uL (0.0-0.5); EOS % 1.6 % (0.0-3.0); HEMOGLOBIN 14.5 g/dl (12.0-15.5); LYMPH # 1.7 10^3/uL (1.5-5.0); LYMPH % 25.1 % (24.0-44.0); MEAN CORPUSCULAR HEMOGLOBIN 31.4 pg (27.0-33.0); MEAN CORPUSCULAR HGB CONC 33.7 g/dl (32.0-36.5); MEAN CORPUSCULAR VOLUME 93.1 fl (80.0-96.0); MONO # 0.4 10^3/uL (0.0-0.8); MONO % 6.1 % (2.0-8.0); NEUTROPHILS # 4.5 10^3/uL (1.5-8.5); NEUTROPHILS % 66.2 % (36.0-66.0); PLATELET COUNT, AUTOMATED 236 10^3/uL (150-450); RED BLOOD COUNT 4.62 10^6/uL (4.00-5.40); WHITE BLOOD COUNT 6.9 10^3/uL (4.0-10.0)
[2024-10-08 13:51] LABS: HEMOGLOBIN A1c 5.9 % (4.0-6.0)
[2024-10-08 14:25] LABS: ALKALINE PHOSPHATASE 43 U/L (35-104); ALT/SGPT 17 U/L (7.0-40); AST/SGOT 11 U/L (<34); BILIRUBIN,TOTAL 0.9 MG/DL (0.3-1.2); BLOOD UREA NITROGEN 24 MG/DL (9-23); CALCIUM LEVEL 9.7 MG/DL (8.5-10.1); CARBON DIOXIDE LEVEL 26 MMOL/L (20-31); CHLORIDE LEVEL 102 MMOL/L (98-107); CHOLESTEROL LEVEL 104 MG/DL (<200); CHOLESTEROL RISK RATIO 2.72 (<5); CREATININE FOR GFR 0.52 MG/DL (0.55-1.30); GLOMERULAR FILTRATION RATE > 90.0 (>51); GLUCOSE, FASTING 123 MG/DL (60-100); HDL CHOLESTEROL 38.1 MG/DL (>40); LDL CHOLESTEROL 44.3 MG/DL (<100); NON-HDL-C 65.9 MG/DL; POTASSIUM SERUM 4.2 MMOL/L (3.5-5.1); SODIUM LEVEL 139 MMOL/L (136-145); TRIGLYCERIDES LEVEL 108 MG/DL (<150)
== END ==
LOC: M PLALAB 10:27
PROVIDERS: ATTEND Family Medicine
DX: E11.65 Type 2 diabetes mellitus with hyperglycemia (principal)

== ENCOUNTER → 2025-01-18 | Outpatient (CLI) | payer OTHER ==
[2025-01-18 09:26] LABS: BASO # 0.0 10^3/uL (0.0-0.2); BASO % 0.6 % (0.0-1.0); EOS # 0.1 10^3/uL (0.0-0.5); EOS % 0.8 % (0.0-3.0); LYMPH # 1.7 10^3/uL (1.5-5.0); LYMPH % 25.4 % (24.0-44.0); MONO # 0.3 10^3/uL (0.0-0.8); MONO % 4.6 % (2.0-8.0); NEUTROPHILS # 4.5 10^3/uL (1.5-8.5); NEUTROPHILS % 68.3 % (36.0-66.0); PLATELET COUNT, AUTOMATED 224 10^3/uL (150-450)
[2025-01-18 09:44] LABS: ESTIMATED AVERAGE GLUCOSE 111.0 MG/DL (60-110)
[2025-01-18 09:51] LABS: CREATININE, URINE 103.5 MG/DL; MALB URINE SIEMENS 10.0 MG/L; MAU/CREAT RATIO 9.6 MCG/MG (0.0-30.0)
[2025-01-18 09:52] LABS: ALT/SGPT 26 U/L (7.0-40); AST/SGOT 18 U/L (<34); CALCIUM LEVEL 9.2 MG/DL (8.5-10.1); CARBON DIOXIDE LEVEL 29 MMOL/L (20-31); CHLORIDE LEVEL 101 MMOL/L (98-107); CHOLESTEROL LEVEL 132 MG/DL (<200); CHOLESTEROL RISK RATIO 2.45 (<5); CREATININE FOR GFR 0.60 MG/DL (0.55-1.30); GLOMERULAR FILTRATION RATE > 90.0 (>51); LDL CHOLESTEROL 58.6 MG/DL (<100); NON-HDL-C 78.2 MG/DL; POTASSIUM SERUM 4.5 MMOL/L (3.5-5.1); SODIUM LEVEL 140 MMOL/L (136-145); TRIGLYCERIDES LEVEL 98 MG/DL (<150)
[2025-01-18 09:55] LABS: FREE T4 1.23 NG/DL (0.89-1.76)
== END ==
LOC: M LAB 08:34
PROVIDERS: ATTEND Family Medicine
DX: E11.9 Type 2 diabetes mellitus without complications (principal); E78.00 Pure hypercholesterolemia, unspecified